=== PATIENT | male | born 1955 | race Caucasian/White ===

== ENCOUNTER 2020-02-21 10:02 | Emergency (ER) | payer MEDICARE, OTHER, SELFPAY ==
[2020-02-21 10:31] VITALS: BP 164/100; PULSE 75; RESP 12; TEMP 35.6; O2SAT 98
--- NOTE | 2020-02-21 11:20 | ED.EXTPRO ---
HPI - Extremity Problem <Bekah Thompson PA-C - Last Filed: 02/21/20 23:08> General Chief complaint: Extremity Problem,Nontraumatic Stated complaint: blue fingers/feet numb/toes blue 1xmonth Time Seen by Provider: 02/21/20 10:03 Source: patient Mode of arrival: Ambulatory History of Present Illness HPI Narrative: A 64-year-old male reports no pertinent past medical history except he has a every day smoker for many years, who presents to the emergency department with complaints of increasing pain associated with discoloration, tingling and cold sensation in his distal finger tips and toes bilaterally. This pain and tingling extends into the balls of his feet on both sides however he reports minimal discoloration in his feet. This is been going on for nearly 2 months, however he thinks it may have been worsening recently. He describes the sensation as feeling like he is standing on a bed of needles and extremely painful particularly if he puts pressure on his finger tips. his toes, or the balls of his feet. He has had the discoloration in his 2nd and 3rd fingertips on his left hand for nearly 2 months however it has changed slightly and now he has some dark spots in his fingertips in the last few weeks. His right fingertips are also affected although less so. His left and right feet are both affected but his left foot seems to be more affected. He reports he saw his primary care, had labs done and was referred to see a retail sales clerk, however they said they could not get him in until late April. Notably he did have labs done at his PCP on the 03 of February including a CMP CBC and he was FRANCESCO positive. He denies fever, chills, nausea, vomiting, chest pain, abdominal pain, or any other symptoms. MD Complaint: extremity pain and cold extremity Onset (ago): month(s) (2) Related Data Allergies Allergy/AdvReac Type Severity Reaction Status Date / Time From PERCOCET Allergy Mild Uncoded 12/31/17 12:19 Review of Systems <Bekah Thompson PA-C - Last Filed: 02/21/20 23:08> Review of Systems Narrative: GENERAL: Denies chills, fatigue, malaise, fever, sweats. HEENT: Denies sinus pain, ear pain, sore throat, difficulty swallowing, dizziness. RESPIRATORY: Denies dyspnea, cough, wheezing, hemoptysis, sputum. CARDIOVASCULAR: Denies chest pain, palpitations, orthopnea, edema, GASTROINTESTINAL: Denies nausea, vomiting, abdominal pain, diarrhea, constipation, melena. : Denies dysuria, frequency, incontinence, hematuria, urinary retention. MUSCULOSKELETAL: denies weakness, joint pain, or bony pain SKIN: Positive for bluish purplish discoloration on finger tips of both hands. Positive for numbness extreme pain in tips of fingers and in toes and balls of feet for over 1 month. Denies rash, skin lesions, or other NEUROLOGIC: Denies weakness, headache, numbness, change in speech, confusion, seizures, incoordination. PSYCHIATRIC: No concerning psychosocial issues. 12 point review of systems is negative except for those stated above Integumentary/Breasts Skin/Breast: Reports as per HPI, Reports skin pain and Reports unusual bruising Patient History <Bekah Thompson PA-C - Last Filed: 02/21/20 23:08> Social History Smoking Status: Current every day smoker Smoking Status: Current every day smoker alcohol intake frequency: a few times a week Substance Use Type: does not use Exam <Bekah Thompson PA-C - Last Filed: 02/21/20 23:08> Narrative Exam Narrative: GENERAL: 64 year old patient appears stated age. Well-nourished, well-developed patient, in mild distress. HEAD: Atraumatic. Normocephalic. EYES: Pupils equal round and reactive. Extraocular motions intact. No scleral icterus. No injection or drainage. ENT: Nose without bleeding, purulent drainage. Throat without erythema, tonsillar hypertrophy or exudate. Airway patent. NECK: Trachea midline. Non tender CARDIOVASCULAR: Heart sounds are slightly distant. Regular rate and rhythm without murmurs, gallops, or rubs. Distal pulses are strong and equal bilaterally upper and lower extremities. RESPIRATORY: Clear to auscultation. Breath sounds equal bilaterally. No wheezes, rales, or rhonchi. GASTROINTESTINAL: Abdomen soft, non-tender, nondistended. EXTREMITIES: No edema or joint tenderness. capillary refill <2 sec all four extremities BACK: Nontender without deformity or crepitance. No flank tenderness. NEURO: AOx3. Sharp dull discrimination is intact in the lower extremities and the upper extremities. Exception of Pt feels sharp sensation in L distal digits with both sharp AND dull pressures. SKIN: There is pain with palpation of the distal finger tips bilaterally all digits. There is bluish purple discoloration of the most distal portion (<1cm) of the 2nd and 3rd digits on the left hand there is also approximately 1 mm dark maroon/purple-colored spots on the same distal finger tips; there is a similar 1 mm spot on the right hand on the 2nd digit distally near the nail bed, no digits of the R hand are otherwise discolored, capillary refill is intact, less than 2 seconds. On the left foot the 1st digit is slightly bluish in appearance with good capillary refill less than 2 seconds. No rash or erythema of visible areas. Initial Vital Signs Initial Vital Signs: Vital Signs Temperature 96.1 F L 02/21/20 10:31 Pulse Rate 75 02/21/20 10:31 Respiratory Rate 12 02/21/20 10:31 Blood Pressure 164/100 H 02/21/20 10:31 Pulse Oximetry 98 02/21/20 10:31 <DO Caridad Vallecillo Last Filed: 02/22/20 06:43> Initial Vital Signs Initial Vital Signs: Vital Signs Temperature 96.1 F L 02/21/20 10:31 Pulse Rate 75 02/21/20 10:31 Respiratory Rate 12 02/21/20 10:31 Blood Pressure 164/100 H 02/21/20 10:31 Pulse Oximetry 98 02/21/20 10:31 Course <Bekah Thompson PA-C - Last Filed: 02/21/20 23:08> Orders Ordered: ED Orders 02/21/20 11:38 EKG-12 Lead Stat 02/21/20 12:25 Complete Blood Count AUTO DIFF Stat Comprehensive Metabolic Panel Stat Vital Signs Vital signs: Vital Signs - 8 hr 02/21/20 10:31 02/21/20 12:22 02/21/20 13:22 Temperature 96.1 F L Pulse Rate 75 57 L 58 L Respiratory Rate 12 17 16 Blood Pressure 164/100 H 147/96 H Blood Pressure [Left Arm] 135/80 Pulse Oximetry 98 99 99 <DO Caridad Vallecillo Last Filed: 02/22/20 06:43> Orders Ordered: ED Orders 02/21/20 11:38 EKG-12 Lead Stat 02/21/20 12:25 Complete Blood Count AUTO DIFF Stat Comprehensive Metabolic Panel Stat Vital Signs Vital signs: Vital Signs - 8 hr 02/21/20 10:31 02/21/20 12:22 02/21/20 13:22 Temperature 96.1 F L Pulse Rate 75 57 L 58 L Respiratory Rate 12 17 16 Blood Pressure 164/100 H 147/96 H Blood Pressure [Left Arm] 135/80 Pulse Oximetry 98 99 99 MDM - Extremity (Nontraumatic) <Bekah Thompson PA-C - Last Filed: 02/21/20 23:08> Lab Data Result diagrams: 02/21/20 12:25 02/21/20 12:25 Labs: Lab Results 02/21/20 02/21/20 Range/Units 12:25 12:25 WBC 9.7 (4.5-11.0) X10^3/uL RBC 4.96 (4.5-5.9) X10^6/uL Hgb 16.4 (13.5-17.5) g/dL Hct 47.1 (41-53) % MCV 94.9 (80-100) fL MCH 33.0 (26-34) PG MCHC 34.7 (30-36) % RDW 14.2 (11.6-14.8) % Plt Count 191 (150-400) X10^3/uL Neut % (Auto) 67.7 (50-75) % Lymph % (Auto) 26.6 (25-40) % [place] % (Auto) 4.7 (3-14) % Eos % (Auto) 0.5 L (2-4) % Baso % (Auto) 0.5 (0-2) % Neut # (Auto) 6600 (9468-2128) /uL Lymph # (Auto) 2600 (2333-4723) /uL [place] # (Auto) 500 (0-900) /uL Eos # (Auto) 100 (0-450) /uL Baso # (Auto) 0 (0-100) /uL Sodium 141 (137-145) mmol/L Potassium 4.5 (3.4-5.1) mmol/L Chloride 106 (98-107) mmol/L Carbon Dioxide 29 (22-32) mmol/L BUN 18 (9-20) mg/dL Creatinine 0.98 (0.66-1.25) mg/dL Estimated GFR > 60.0 (>60) mL/min BUN/Creatinine Ratio 18.4 (6-22) Glucose 89 (80-110) mg/dL Calcium 9.6 (8.4-10.2) mg/dL Total Bilirubin 0.6 (0.2-1.3) mg/dL AST 26 (17-59) IU/L ALT 25 (<50) IU/L Alkaline Phosphatase 46 (38-126) U/L Total Protein 8.0 (6.3-8.2) g/dL Albumin 4.5 (3.5-5.0) g/dL Globulin 3.5 (1.7-4.1) g/dL Albumin/Globulin Ratio 1.3 (1.0-2.8) ECG Data Attestation EKG: I personally reviewed and interpreted this ECG as follows: (Normal sinus rhythm rate of 63, SC 158 QRS 82 QT 404 P axis 53, R axis 17, T axis 36) Prior ECG tracings: not available for review MDM Narrative Medical decision making narrative: This is reportedly previously healthy 64-year-old with the exception of being a pack-a-day smoker for many years, presents to the emergency department with complaints of extreme pain in fingertips, changes in sensation and discoloration of his fingertips and toes that has been going on for over a month. Notably he did have labs done at his PCP on the 03 of February which were WNL exception of FRANCESCO positive. His symptoms of significant pain as well as some discoloration to the tips of his 2nd and 3rd digits bilaterally most notable on the left are concerning, however they are most likely due to a rheumatologic condition as yet undiagnosed, or possibly though less likely Raynaud's. The lesions on his fingertips could possibly represent osler nodes/Janeway lesions; though I have a fairly low suspicion for subacute infectious endocarditis given his hx, he has had no systemic symptoms however it cannot be excluded. Of note his sx have been present for about 5-6 weeks, and he was just started on rosuvastatin about 2 months ago although the exact timing of this is not clear. He had complaints of continued pain that sounds largely neuropathic in his fingertips and his toes, and he was advised to revisit his pain management with his primary care physician. He was ultimately discharged with PCP follow-up and advised to contact the retail sales clerk's office to attempt to get on a wait list or get an earlier appointment. He was provided with emergency return precautions and all questions were answered. <Srikanth Galloway DO - Last Filed: 02/22/20 06:43> Lab Data Labs: Lab Results 02/21/20 02/21/20 Range/Units 12:25 12:25 WBC 9.7 (4.5-11.0) X10^3/uL RBC 4.96 (4.5-5.9) X10^6/uL Hgb 16.4 (13.5-17.5) g/dL Hct 47.1 (41-53) % MCV 94.9 (80-100) fL MCH 33.0 (26-34) PG MCHC 34.7 (30-36) % RDW 14.2 (11.6-14.8) % Plt Count 191 (150-400) X10^3/uL Neut % (Auto) 67.7 (50-75) % Lymph % (Auto) 26.6 (25-40) % [place] % (Auto) 4.7 (3-14) % Eos % (Auto) 0.5 L (2-4) % Baso % (Auto) 0.5 (0-2) % Neut # (Auto) 6600 (7265-9066) /uL Lymph # (Auto) 2600 (2168-4138) /uL [place] # (Auto) 500 (0-900) /uL Eos # (Auto) 100 (0-450) /uL Baso # (Auto) 0 (0-100) /uL Sodium 141 (137-145) mmol/L Potassium 4.5 (3.4-5.1) mmol/L Chloride 106 (98-107) mmol/L Carbon Dioxide 29 (22-32) mmol/L BUN 18 (9-20) mg/dL Creatinine 0.98 (0.66-1.25) mg/dL Estimated GFR > 60.0 (>60) mL/min BUN/Creatinine Ratio 18.4 (6-22) Glucose 89 (80-110) mg/dL Calcium 9.6 (8.4-10.2) mg/dL Total Bilirubin 0.6 (0.2-1.3) mg/dL AST 26 (17-59) IU/L ALT 25 (<50) IU/L Alkaline Phosphatase 46 (38-126) U/L Total Protein 8.0 (6.3-8.2) g/dL Albumin 4.5 (3.5-5.0) g/dL Globulin 3.5 (1.7-4.1) g/dL Albumin/Globulin Ratio 1.3 (1.0-2.8) Discharge Plan Departure Patient Disposition: Home Clinical Impression: Vasculopathy, Pain in finger of both hands, Pain in toes of both feet Discharge Date/Time: 02/21/20 13:22 Activity Restrictions/Additional Instructions: Thank you for letting us be part of your care in the emergency department today. Your EKG today looked good, we also did some labs to look at your electrolytes as well as your blood counts which also look fine today. My strongest recommendation is that you continue to work with your PCP to be seen by Rheumatology, as the symptoms that you are having are consistent with a rheumatologic problem of which there are many possible diagnoses, and your PCP found you have an elevated FRANCESCO when your labs were done recently--which is an incicator of rheumatologic disease. If you work with your PCP and also call the rheumatologists office, my hope is taht you will be able to get in to be seen prior to late March. I have also included the name of 1 of the physicians who practices rheumatology in [place], you do not have to be seen by him specifically--there are other rheumatologists in his office however the number included should get you a line to his office and you can work on trying to get appointment with someone who is a provider there. I also reccomend visiting her PCP again soon and discussing the medications you are on particularly for pain, as these do not seem to be working well for you yet. Neuropathic pain which I suspect your experiencing is very difficult pain to treat with medicines however usually with the right combination patients can get some relief. There is no evidence of an emergent or life threatening illness at this time, but follow up with your doctor in 1-2 days is recommended nonetheless to continue to rule out serious underlying causes of your symptoms. Please call the office for an appointment. Please return to the Emergency Department for any worsening or persistent symptoms. Please take your medications as directed. If you do develop worsening of your symptoms, or new symptoms to include fever, chills, nausea, vomiting, diarrhea or any other symptoms of concern to you please do not hesitate to seek medical care, call your PCP, or return to the emergency department. Referrals: Lobo Bradford MD [Non-Staff] - (FRANCESCO + Digital Vasculopathy/Pain) <Srikanth Galloway DO - Last Filed: 02/22/20 06:43> Cosign ED Attending Cosignature Attestation: I was immediately available in the department for consultation. This documentation has been reviewed and I agree with assessment and plan. Supervised by Srikanth Galloway DO
[2020-02-21 12:22] VITALS: BP 135/80; PULSE 57; RESP 17; O2SAT 99
[2020-02-21 12:48] LABS: Add Manual Diff / Slide Review NO; Basophils Absolute Auto 0 /uL (0-100); Basophils Percent Auto 0.5 % (0-2); Eosinophils Absolute Auto 100 /uL (0-450); Eosinophils Percent Auto 0.5 % (2-4); Hematocrit 47.1 % (41-53); Hemoglobin 16.4 g/dL (13.5-17.5); Lymphocytes Absolute Auto 2600 /uL (1100-4500); Lymphocytes Percent Auto 26.6 % (25-40); Mean Corpuscular HGB Conc 34.7 % (30-36); Mean Corpuscular Volume 94.9 fL (80-100); Monocytes Absolute Auto 500 /uL (0-900); Monocytes Percent Auto 4.7 % (3-14); Neutrophils Absolute Auto 6600 /uL (1500-7000); Neutrophils Percent Auto 67.7 % (50-75); Platelet Count 191 X10^3/uL (150-400); Red Blood Cell Count 4.96 X10^6/uL (4.5-5.9); Red Cell Distribution Width 14.2 % (11.6-14.8); White Blood Cell Count 9.7 X10^3/uL (4.5-11.0)
--- NOTE | 2020-02-21 12:59 | PC.NURSE ---
delayed cap. refill in a couple of fingers. fingers are purple
[2020-02-21 13:03] LABS: Alanine Aminotransferase 25 IU/L (<50); Albumin 4.5 g/dL (3.5-5.0); Albumin Globulin Ratio 1.3 (1.0-2.8); Alkaline Phosphatase 46 U/L (38-126); Aspartate Aminotransferase 26 IU/L (17-59); BUN Creatinine Ratio 18.4 (6-22); Bilirubin Total 0.6 mg/dL (0.2-1.3); Blood Urea Nitrogen 18 mg/dL (9-20); Calcium 9.6 mg/dL (8.4-10.2); Carbon Dioxide 29 mmol/L (22-32); Chloride 106 mmol/L (98-107); Estimated Glomerular Filt Rate > 60.0 mL/min (>60); Globulin 3.5 g/dL (1.7-4.1); Glucose 89 mg/dL (80-110); HEMOLYSIS < 15 (0-50); Potassium 4.5 mmol/L (3.4-5.1); Sodium 141 mmol/L (137-145)
[2020-02-21 13:22] VITALS: BP 147/96; PULSE 58; RESP 16; O2SAT 99
== END 2020-02-21 13:22 | disposition home or self-care (01) ==
PROVIDERS: Emergency Provider Student in an Organized Health Care Education/Training Program
DX: M79.645 Pain in left finger(s) (principal); M79.644 Pain in right finger(s); M79.675 Pain in left toe(s); M79.674 Pain in right toe(s); I99.9 Unspecified disorder of circulatory system; R07.9 Chest pain, unspecified
CPT/HCPCS: 36415; 80053; 85025; 93005; 93010; 99283; 99284

== ENCOUNTER → 2020-03-01 11:53 | Outpatient (CLI) | payer MEDICARE, OTHER, SELFPAY ==
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
== END ==
PROVIDERS: Referring Provider Family Medicine; Visit Provider Family Medicine
DX: J44.9 Chronic obstructive pulmonary disease, unspecified (principal)
CPT/HCPCS: 71046

== ENCOUNTER → 2021-01-15 12:22 | Outpatient (CLI) | payer MEDICARE, OTHER, SELFPAY ==
--- NOTE | 2021-01-15 | DI.MRI.S_ITS ---
PROCEDURE: MR LUMBAR SPINE WO CON INDICATIONS: Pain in leg, unspecified TECHNIQUE: Noncontrast sagittal T1 spin echo and T2 fast echo, sagittal STIR, axial T1 and T2 fast spin echo through the lumbar spine. In cases with scoliosis, additional coronal T2 fast spin echo may be performed. COMPARISON: None. FINDINGS: Image quality: Excellent. Alignment and Curvature: Normal lumbar vertebral body height and alignment. Bone Marrow: No suspicious focal marrow signal abnormality. Bone marrow edema in the inferior L4 endplates surrounding a Schmorl node. Periarticular bone marrow edema associated with facet osteoarthropathy from L3-L4 through L5-S1, most notable on the left at L4-L5 where there is extension into the left L4 and L5 pedicles. There is also some soft tissue edema surrounding the facets at these levels. Spinal Cord: Normal position and appearance of the conus. Regional Soft Tissues: No significant soft tissue abnormality otherwise. T12-L1: No significant degenerative change, spinal canal stenosis, or neural foraminal stenosis. L1-L2: No significant degenerative change, spinal canal stenosis, or neural foraminal stenosis. L2-L3: Disc desiccation and disc height loss. Circumferential disc bulge flattens the ventral thecal sac. No mass effect upon the traversing L3 nerve roots. No neural foraminal stenosis. L3-L4: Disc desiccation and disc height loss. Circumferential disc bulge flattens the ventral thecal sac. No mass effect upon the traversing L4 nerve roots. No neural foraminal stenosis. Facet hypertrophy with small facet effusions and subchondral cystic change. L4-L5: Disc desiccation and disc height loss with circumferential disc bulge and a superimposed broad-based posterior disc protrusion. Moderate subarticular zone stenosis is present with displacement of the descending L5 nerve root by disc material. There is further encroachment upon the subarticular zones by bulky facet hypertrophy and buckling of the ligamentum flavum. Foraminal components of the disc bulge, buckling of the ligamentum flavum, and facet hypertrophy combine to produce severe left and moderate right neural foraminal stenosis. There appears to be flattening of the exiting left L4 nerve root. L5-S1: Diffuse disc bulge with a superimposed broad-based posterior disc protrusion. Mild displacement of the descending S1 nerve roots within both subarticular zones. Mild bilateral neural foraminal stenosis. IMPRESSION: Multilevel multifactorial degenerative changes as described above. Findings worst at L4-L5 where there is severe left and moderate right neural foraminal stenosis along with considerable displacement of the descending L5 nerve roots within both subarticular zones. Correlate for any corresponding L4 and/or L5 radicular symptoms. Facet osteoarthropathy with associated marrow and soft tissue edema, potential sources of nonradicular axial back pain. Dictated by: Bogdan Cardona M.D. on 01/15/2021 at 14:21 Approved by: Bogdan Cardona M.D. on 01/15/2021 at 14:27
== END ==
PROVIDERS: PCP Family Medicine; Referring Provider Surgery Vascular Surgery; Visit Provider Surgery Vascular Surgery
DX: M54.5 Low back pain (principal); M79.606 Pain in leg, unspecified; M47.816 Spondylosis without myelopathy or radiculopathy, lumbar region; M47.817 Spondylosis without myelopathy or radiculopathy, lumbosacral region; M48.061 Spinal stenosis, lumbar region without neurogenic claudication; M48.07 Spinal stenosis, lumbosacral region
CPT/HCPCS: 72148